=== PATIENT | female | born 1960 | race Asian ===

== ENCOUNTER → 2018-08-05 | Outpatient (CLI) | payer OTHER | LOC: COL.RAD 10:14 | DX: M25.471 Effusion, right ankle (principal); M77.31 Calcaneal spur, right foot ==

== ENCOUNTER 2021-03-13 11:11 | Inpatient (IN) | payer OTHER ==
[~2021-03-13] VITALS: Ht 160 cm; Wt 53.8 kg
[2021-03-13 12:00] LABS: BASO % 0.4 % (0.0-2.0); GRAN # 7.2 K/mm3 (1.4-6.5); GRAN % 84.5 % (42.2-75.2); LYMPH % 12.1 % (20.0-51.0); MEAN CELL VOLUME 80 fl (80.0-100.0); MEAN CORPUSCULAR HEMOGLOBIN 29 pg (27-31); MEAN CORPUSCULAR HGB CONC 36 g/dl (33.0-37.0); MEAN PLATELET VOLUME 9.2 fl (7.4-10.4); MONO # 0.2 K/mm3 (0.1-0.6); MONO % 2.6 % (1.7-9.3); PLATELET COUNT 291 K/mm3 (130-400); REDCELL DISTRIBUTION WIDTH-CV 11.6 % (11.5-14.5)
[2021-03-13 12:01] LABS: HEMATOCRIT 35.9 % (37.0-47.0)
[2021-03-13 12:39] LABS: ALBUMIN 4.2 gm/dL (3.4-4.8); BILIRUBIN,TOTAL 1.3 mg/dL (0.2-1.2); C-REACTIVE PROTEIN 0.05 mg/dL (0.00-0.50); CALCIUM 8.8 mg/dL (8.4-10.2); CREATININE, serum 0.66 mg/dL (0.57-1.11); MAGNESIUM 1.5 mg/dL (1.6-2.6); POTASSIUM 3.9 mmol/L (3.5-4.5)
[2021-03-13 13:16] LABS: CALCIUM 7.7 mg/dL (8.4-10.2); CREATININE, serum 0.59 mg/dL (0.57-1.11); POTASSIUM 3.8 mmol/L (3.5-4.5)
[2021-03-13 16:53] LABS: CALCIUM 8.3 mg/dL (8.4-10.2); CREATININE, serum 0.65 mg/dL (0.57-1.11); POTASSIUM 3.6 mmol/L (3.5-4.5)
[2021-03-13 18:19] LABS: CALCIUM 8.3 mg/dL (8.4-10.2); CREATININE, serum 0.69 mg/dL (0.57-1.11); POTASSIUM 3.6 mmol/L (3.5-4.5)
[2021-03-13 20:35] LABS: CALCIUM 8.4 mg/dL (8.4-10.2); CREATININE, serum 0.71 mg/dL (0.57-1.11); POTASSIUM 3.6 mmol/L (3.5-4.5)
[2021-03-14] MEDS ORDERED: ZOLOFT 50MG50 MG PO (00:54)
[2021-03-14] MEDS ORDERED: ZYLOPRIM 100MG100 MG PO (00:54)
[2021-03-14] MEDS ORDERED: PRILOSEC 20MG20 MG PO (00:54)
[2021-03-14] MEDS ORDERED: [UNRECOGNIZED DRUG - SUPPLY] (00:54)
[2021-03-14] MEDS ORDERED: FOSAMAX 70MG TA70 MG PO (00:55)
[2021-03-14 01:00] LABS: CALCIUM 8.3 mg/dL (8.4-10.2); CREATININE, serum 0.74 mg/dL (0.57-1.11); POTASSIUM 3.5 mmol/L (3.5-4.5)
--- NOTE | 2021-03-14 01:20 | NUR ---
Pt. arrived to the floor. Pt. is A&OX3, assessment complete. INT to lt. forearm patent. Pt. deneies pain or other needs, call light within reach.
[2021-03-14 03:02] VITALS: BP 125/61; PULSE 84; TEMP 98
[2021-03-14 05:07] LABS: CALCIUM 9.2 mg/dL (8.4-10.2); CREATININE, serum 0.78 mg/dL (0.57-1.11); POTASSIUM 3.5 mmol/L (3.5-4.5)
--- NOTE | 2021-03-14 07:06 | NUR ---
awake resting in bed, bedside shift report received from TON Dobbs
--- NOTE | 2021-03-14 07:09 | NUR ---
Attempted med rec. Pt. unsure of doses. Reported to TON Izaguirre that Pharmacy may need notified to verify meds.
[2021-03-14 07:48] VITALS: BP 97/50; PULSE 66; TEMP 98.4
--- NOTE | 2021-03-14 07:55 | NUR ---
resting in bed, full assessment completed, see interventions for further info, denies needs, has ordered breakfast
[2021-03-14 08:34] LABS: CALCIUM 8.3 mg/dL (8.4-10.2); CREATININE, serum 0.71 mg/dL (0.57-1.11); POTASSIUM 3.5 mmol/L (3.5-4.5)
--- NOTE | 2021-03-14 09:15 | NUR ---
sitting up on side of bed eating breakfast, IV rate increased to 75ml/hr
--- NOTE | 2021-03-14 09:42 | NUR ---
BURT met with the patient and her , Carol (ph#[phone]), to discuss discharge plan. The patient lives in [place] with her . She reports independence with ADLs and does not have any DME. The patient's PCP is Dr. Mari Dale and she receives her medications from [facility]. She reports no difficulties obtaining her meds. The patient does not have a DPOA-HC, but her and her were interested in obtaining a form. BURT provided. The patient plans on returning home with her upon discharge. No additional needs at this time. *Discharge plan: home with *
[2021-03-14] MEDS ORDERED: KLONOPIN 0.5MG0.5 MG PO (11:03)
[2021-03-14] MEDS ORDERED: INDERAL LA 60MG60 MG PO (11:08)
[2021-03-14 11:45] VITALS: BP 141/102; PULSE 79; TEMP 98.6
--- NOTE | 2021-03-14 11:50 | NUR ---
ambulating in [place] with physical therapy
--- NOTE | 2021-03-14 12:10 | NUR ---
ready to take a shower, CHAIRMAN in to assist with taking a shower
[2021-03-14 12:28] VITALS: BP 101/52; BP 108/65
[2021-03-14 12:29] LABS: CALCIUM 8.6 mg/dL (8.4-10.2); CREATININE, serum 0.77 mg/dL (0.57-1.11); POTASSIUM 3.9 mmol/L (3.5-4.5)
--- NOTE | 2021-03-14 12:35 | NUR ---
out of shower and back to bed, telemetry on and IV fluids restarted, denies pain or needs
--- NOTE | 2021-03-14 13:30 | NUR ---
sitting up on side of bed eating lunch
--- NOTE | 2021-03-14 15:26 | NUR ---
resting in bed with eyes closed
[2021-03-14 15:48] VITALS: BP 117/56; PULSE 76; TEMP 98.1
[2021-03-14 16:41] LABS: CALCIUM 8.7 mg/dL (8.4-10.2); CREATININE, serum 0.86 mg/dL (0.57-1.11); POTASSIUM 3.7 mmol/L (3.5-4.5)
[2021-03-14 19:39] VITALS: BP 125/64; PULSE 68; TEMP 98.3
[2021-03-14 20:41] LABS: CALCIUM 8.9 mg/dL (8.4-10.2); CREATININE, serum 0.83 mg/dL (0.57-1.11); POTASSIUM 4.1 mmol/L (3.5-4.5)
[2021-03-15 00:08] VITALS: BP 120/63; PULSE 66; TEMP 98.4
[2021-03-15 01:25] LABS: CALCIUM 8.9 mg/dL (8.4-10.2); CREATININE, serum 0.83 mg/dL (0.57-1.11)
[2021-03-15 03:37] VITALS: BP 120/59; PULSE 69; TEMP 98.1
--- NOTE | 2021-03-15 04:09 | NUR ---
PATIENT A&O. IV TO L FA PATENT AND D5W INFUSING AT 100 ML/HR PER NEW ORDER. DENIES PAIN. RESTING COMFORTABLY IN BED. CALL LIGHT WITHIN REACH.
[2021-03-15 05:28] LABS: BASO # 0.1 K/mm3 (0.0-0.2); BASO % 1.5 % (0.0-2.0); EOS # 0.2 K/mm3 (0.0-0.7); EOS % 2.1 % (0.0-4.0); GRAN # 3.3 K/mm3 (1.4-6.5); GRAN % 45.8 % (42.2-75.2); HEMOGLOBIN 12.2 g/dl (12.5-16.0); LYMPH # 2.8 K/mm3 (1.2-3.4); LYMPH % 38.9 % (20.0-51.0); MEAN CELL VOLUME 84 fl (80.0-100.0); MEAN CORPUSCULAR HEMOGLOBIN 29 pg (27-31); MEAN CORPUSCULAR HGB CONC 35 g/dl (33.0-37.0); MEAN PLATELET VOLUME 9.3 fl (7.4-10.4); MONO # 0.8 K/mm3 (0.1-0.6); MONO % 11.3 % (1.7-9.3); PLATELET COUNT 287 K/mm3 (130-400); REDCELL DISTRIBUTION WIDTH-CV 12.3 % (11.5-14.5)
[2021-03-15 05:34] LABS: CALCIUM 8.7 mg/dL (8.4-10.2); CREATININE, serum 0.78 mg/dL (0.57-1.11); HEMATOCRIT 35.3 % (37.0-47.0); POTASSIUM 3.7 mmol/L (3.5-4.5)
--- NOTE | 2021-03-15 06:52 | NUR ---
Report received from TON Saba. Patient is resting comfortably in bed and denies pain at this time. Call light and bedside table are within reach. Will continue to monitor patient throughout shift.
[2021-03-15 07:04] VITALS: BP 122/64; PULSE 65; TEMP 97.7
--- NOTE | 2021-03-15 09:15 | NUR ---
Patient's is at bedside. This nurse explained to him why we were stopping the fluids and we also discussed what was going on with her Sodium. This nurse explained to patient and because her sodium level was so low and weakness could be a result of hyponatremia or from being in the hospital but the important thing is the level is going up. Will continue to monitor patient throughout shift.
--- NOTE | 2021-03-15 09:41 | NUR ---
Patient denies pain at this time but still feels weak. Patient denies dizziness or lightheadedness. Critical care also called and said patients HR was in low 130s. This nurse went into room to check on patient and she was in the bathroom and stated she feels fine. Will continue to monitor patient throughout shift.
--- NOTE | 2021-03-15 10:56 | NUR ---
Patient complained of constipation. Patient reported she has not had a bowel movement since 03/11/21. This nurse will give patient Marilax and monitor.
[2021-03-15 11:30] VITALS: BP 112/57; PULSE 76; TEMP 98.4
[2021-03-15 14:22] LABS: CALCIUM 9.1 mg/dL (8.4-10.2); CREATININE, serum 0.78 mg/dL (0.57-1.11); POTASSIUM 4.3 mmol/L (3.5-4.5)
--- NOTE | 2021-03-15 16:00 | NUR ---
Patient has been discharged to home. Patient health summary, discharge summary, and home meds printed and reviewed. Informed patient and Dr. Dale's office was closed and to call on Thursday to get a follow up on Thursday and to do labs prior to appointment. Reviewed medications. Personal items were gathered by to include cell phone and [employer]. Patient transported via by nurse and seatbelted for ride home. Patient and denies any further questions.
== END 2021-03-15 16:00 | disposition home or self-care (01) | DRG 641 ==
LOC: COL.ER 11:11 → MEDICAL 12:53 → COL.ER 12:53 → SURG 03-14 01:12
PROVIDERS: Emergency Medicine; Physician Assistant; ADMIT Internal Medicine
DX: E87.1 Hypo-osmolality and hyponatremia (principal); F32.A Depression, unspecified; F41.9 Anxiety disorder, unspecified; M10.9 Gout, unspecified; M81.0 Age-related osteoporosis without current pathological fracture; E83.42 Hypomagnesemia; E87.2 Acidosis; K29.70 Gastritis, unspecified, without bleeding; T43.225A Adverse effect of selective serotonin reuptake inhibitors, initial encounter; I95.9 Hypotension, unspecified; Z23 Encounter for immunization
CPT/HCPCS: 99223-AI; 99232-AI; 99239; J1650; J2060; J2405; J3475; J7030; J7070

== ENCOUNTER 2023-09-25 11:08 | Emergency (ER) | payer SELFPAY ==
[~2023-09-25] VITALS: Ht 157.5 cm; Wt 57.8 kg
[~2023-09-25 11:08] MED LIST: FOSAMAX 70MG TA70 MG PO; INDERAL LA 60MG60 MG PO; KLONOPIN 0.5MG0.5 MG PO; PRILOSEC 20MG20 MG PO; ZOLOFT 50MG50 MG PO; ZYLOPRIM 100MG100 MG PO; [UNRECOGNIZED DRUG - SUPPLY]
[2023-09-25 11:13] VITALS: TEMP 98.2
[2023-09-25 13:36] VITALS: BP 126/82; PULSE 98
== END 2023-09-25 13:37 | disposition home or self-care (01) ==
LOC: COL.ER 11:08
DX: S09.90XA Unspecified injury of head, initial encounter (principal); S05.12XA Contusion of eyeball and orbital tissues, left eye, initial encounter; W18.30XA Fall on same level, unspecified, initial encounter